=== PATIENT | female | born 1960 | race Caucasian/White ===

== ENCOUNTER 2018-06-29 15:00 | Emergency (ER) | payer MEDICARE, MEDICAID ==
[~2018-06-29] VITALS: Ht 152.4 cm; Wt 102.3 kg
[~2018-06-29 15:00] MED LIST: CEPH-571 PO
[2018-06-29] MEDS ORDERED: diphenhydrAMINE 50 mg/ml inj IV ONE (15:20)
[2018-06-29] MEDS ORDERED: dexamethasone sod phosphate 10mg/ml inj IV STA (15:20)
[2018-06-29] MEDS ORDERED: normal saline 1000ML IV soln IVB ONE (15:20)
[2018-06-29] MEDS ORDERED: ondansetron/PF 4mg/2ml inj IV ONE (15:20)
[2018-06-29] MEDS ORDERED: benztropine 1mg tablet PO ONE (15:25)
[2018-06-29] MEDS ORDERED: HYDROmorphone 1 mg/ml syringe IV ONE (15:55)
[2018-06-29] MEDS ORDERED: HYDROmorphone inj. 0.5 MG/0.5 ML DISP.SYRIN IV ONE (16:30)
[2018-06-29] MEDS ORDERED: diazepam 5mg tablet PO ONE (16:30)
[2018-06-29 16:45] VITALS: BP 141/88
== END 2018-06-29 16:47 | disposition home or self-care (01) ==
LOC: ER 15:00
DX: G24.8 Other dystonia (principal); M54.2 Cervicalgia; G89.29 Other chronic pain; F19.20 Other psychoactive substance dependence, uncomplicated; I10 Essential (primary) hypertension; J44.9 Chronic obstructive pulmonary disease, unspecified; Z90.710 Acquired absence of both cervix and uterus; Z90.89 Acquired absence of other organs; Z88.5 Allergy status to narcotic agent; Z88.1 Allergy status to other antibiotic agents
CPT/HCPCS: 96374; 96375; 96376; 99283; J1100; J1170; J1200; J2405; J7030

== ENCOUNTER 2018-07-05 13:27 | Emergency (ER) | payer MEDICARE, MEDICAID ==
[~2018-07-05] VITALS: Ht 152.4 cm; Wt 102.3 kg
[2018-07-05 13:35] VITALS: BP 136/81
[2018-07-05] MEDS ORDERED: morphine 4 MG/ML inj SYRINge IM ONE ×2 (13:55→14:40)
[2018-07-05] MEDS ORDERED: ondansetron 4mg rapidly disintigrating tab PO ONE (13:55)
[2018-07-05] MEDS ORDERED: fentaNYL 50MCG/HOUR patch.TD72 TD ONE (14:00)
[2018-07-05] MEDS ORDERED: diphenhydrAMINE 50 mg/ml inj IM ONE (14:40)
--- NOTE | 2018-07-05 15:09 | NUR ---
called caregiver, no answer, left message to call back as her client needs a ride home
== END 2018-07-05 15:19 | disposition home or self-care (01) ==
LOC: ER 13:28
DX: G89.29 Other chronic pain (principal); F11.23 Opioid dependence with withdrawal; I10 Essential (primary) hypertension; J44.9 Chronic obstructive pulmonary disease, unspecified; F41.9 Anxiety disorder, unspecified; F32.9 Major depressive disorder, single episode, unspecified; G20 Parkinson's disease; Z88.6 Allergy status to analgesic agent; Z88.1 Allergy status to other antibiotic agents; Z88.5 Allergy status to narcotic agent; Z79.899 Other long term (current) drug therapy; Z90.710 Acquired absence of both cervix and uterus; Z90.89 Acquired absence of other organs
CPT/HCPCS: 96372; 99284; J1200; J2270

== ENCOUNTER 2018-08-12 13:08 | Emergency (ER) | payer MEDICARE, MEDICAID ==
[~2018-08-12] VITALS: Ht 157.5 cm; Wt 100.0 kg
[2018-08-12] MEDS ORDERED: TOPI50TA24 PO ×2 (13:52→13:54)
[2018-08-12] MEDS ORDERED: FLUO20CA39 PO (13:52)
[2018-08-12] MEDS ORDERED: HYDROcodone/acetaminophen 5mg/325mg tablet PO ONE (13:55)
--- NOTE | 2018-08-12 14:46 | NUR ---
called Kelli [phone] spoke with GUICHO DE LA CRUZ, INFORMED NORCO PRESCRIPTION GIVEN 08/05 AND FENTANYL PATCH GIVEN TO PT ON 08/04/18, CALLED MARTIN ON [place] [phone] PT PICKED UP FENTANYL PATCH 50 MCG -10 PATCHES 08/06/18, AND NORCO 10/325 90 PILLS 07/23/18, NEXT NORCO REFILL DUE 08/20/18, PATIENT FILLED VALIUM FROM DR RYAN 07/16/18- 90 PILLS, PT AND PT EX-SPOUSE STATE PT DAUGHTER CONNIE STOPPED BEING PT CAREGIVER/[facility] 03/25/18 AND CORWIN STOPPED BEING CAREGIVER/[facility]HS APPROX 2 WEEKS AGO, PT STATES HER DAUGHTER TOOK HALF OF HER NORCO ON 08/03/18. [facility] [employer] SERVICE MADE AWARE OF THIS PT SITUATION AND WILL COME TO EVALUATE THE PATIENT.
--- NOTE | 2018-08-12 14:55 | NUR ---
LAKESHA MACHINE TECHNICIAN AT BEDSIDE NOW.
--- NOTE | 2018-08-12 15:23 | NUR ---
LAKESHA ULTRASOUND TECH INFORMING PT OF PLAN FOR FOLLOW UP WITH APS, PRESCRIPTIONS FROM PMD CURRENTLY AT [facility] AND PT BEING GIVEN PRESCRIPTION FOR TOMIRAMATE AND PROSAC, CALLED PT EX-SPOUSE [phone] SANDEEP AND HE WILL PICK HER UP IN APPROX 45 MIN AND BRING PT TO [facility] TO OCCUPATIONAL REHABILITATION AIDE PRESCRIPTIONS AND DROP OFF THE TWO PRESCRIPTIONS WRITTEN IN THE ED TODAY.
[2018-08-12 15:57] VITALS: BP 165/87
--- NOTE | 2018-08-12 16:09 | NUR ---
PT ORIGINALLY STATED THAT DR REBOLLEDO'S OFFICE CUT OFF HER PAIN MEDICATIONS 4 DAYS AGO, THEN SHE SAID HER DAUGHTER CONNIE STOLE HER NORCO APPROX 1/2 OF THEM IN THE BEGINNING OF JULY AND THEN SHE SAID SHE TOOK THEM ON 08/03 WHEN THEY WERE RECENTLY FILLED, LATER SHE SAID THAT MICHELLE HER [facility] WORKER/CAREGIVER TOO HER MEDICATION, PT STORY CHANGED MULTIPLE TIMES DURING ED VISIT, [employer] PERSON AWARE OF PT, APS HAS AN OPEN CASE FOR THIS PT, PT HAS IN HOME HELP FROM SANDEEP PT EX SPOUSE AT THIS TIME AND HE AND PT WILL BE WORKING TO FIND NEW [facility] PERSON IN THE NEXT WEEK, PT VERBALIZED UNDERSTANDING THAT SHE NEEDS TO FOLLOW UP WITH [facility] OFFICE FOR HER PRESCRIPTION REFILLS, PT INSTRUCTED TO TRY TO GET ALL OF HER MEDICATIONS FILLED AT ONE PHARMACY TO AVOID HAVING ANY INTERRUPTION OR ISSUES WITH HER PAIN MEDICATION CONTRACT.
== END 2018-08-12 16:12 | disposition home or self-care (01) ==
LOC: ER 13:09
DX: S00.11XA Contusion of right eyelid and periocular area, initial encounter (principal); G89.29 Other chronic pain; I10 Essential (primary) hypertension; J44.9 Chronic obstructive pulmonary disease, unspecified; F17.210 Nicotine dependence, cigarettes, uncomplicated; G20 Parkinson's disease; F41.9 Anxiety disorder, unspecified; F32.9 Major depressive disorder, single episode, unspecified; Z90.710 Acquired absence of both cervix and uterus; Z90.89 Acquired absence of other organs; Z88.5 Allergy status to narcotic agent; Z88.1 Allergy status to other antibiotic agents; Z88.6 Allergy status to analgesic agent; W18.39XA Other fall on same level, initial encounter; Y93.89 Activity, other specified; Y92.89 Other specified places as the place of occurrence of the external cause; Y99.9 Unspecified external cause status
CPT/HCPCS: 99284

== ENCOUNTER 2019-03-27 14:55 | Emergency (ER) | payer MEDICARE, MEDICAID ==
[~2019-03-27] VITALS: Ht 167.6 cm; Wt 100.0 kg
[~2019-03-27 14:55] MED LIST changes: +TOPI50TA24 PO
[2019-03-27] MEDS ORDERED: LORazepam 2 mg/ml vial IM ONE (16:30)
[2019-03-27 16:47] LABS: BASOPHILS # (AUTO) 0.1 X10'3 (0-0.2); EOSINOPHILS # (AUTO) 0.1 X10'3 (0-0.9); EOSINOPHILS % (AUTO) 1.8 % (0-6); HEMOGLOBIN 12.9 g/dl (12.0-16.0); LYMPHOCYTES # (AUTO) 2.5 X10'3 (1.1-4.8); LYMPHOCYTES % (AUTO) 34.4 % (21-51); MEAN CORPUSCULAR HEMOGLOBIN 29.2 PG (27.0-31.0); MEAN CORPUSCULAR HGB CONC 33.1 g/dL (33.0-36.5); MEAN CORPUSCULAR VOLUME 88.3 FL (78-98); MEAN PLATELET VOLUME 7.5 FL (7.4-10.4); MONOCYTES # (AUTO) 0.5 X10'3 (0-0.9); MONOCYTES % (AUTO) 7.1 % (2-12); NEUTROPHILS % (AUTO) 55.7 % (42-75); PLATELET COUNT 207 X10'3 (140-440); RED BLOOD COUNT 4.42 X10'6 (4.20-5.60); RED CELL DISTRIBUTION WIDTH 13.9 % (11.5-14.5); WHITE BLOOD COUNT 7.3 X10'3 (4.5-11.0)
[2019-03-27 17:00] LABS: ALANINE AMINOTRANSFERASE 18 U/L (12-78); ALBUMIN 3.5 G/DL (3.4-5.0); ALBUMIN/GLOBULIN RATIO 0.8 (1.1-1.5); ALKALINE PHOSPHATASE 86 IU/L (46-116); ANION GAP 7 (8-16); ASPARTATE AMINO TRANSFERASE 19 U/L (10-37); BILIRUBIN,TOTAL 0.3 MG/DL (0.1-1.0); BLOOD UREA NITROGEN 21 MG/DL (7-18); CALCIUM 9.1 MG/DL (8.5-10.1); CHLORIDE 103 MMOL/L (99-107); GLUCOSE 83 MG/DL (70-104); POTASSIUM 3.8 MMOL/L (3.5-5.1); SODIUM 139 MMOL/L (135-145); TOTAL CARBON DIOXIDE 29.5 MMOL/L (24-32); TOTAL PROTEIN 7.7 G/DL (6.4-8.2); eGFR 57 ML/MIN
[2019-03-27 17:12] LABS: ETHANOL < 0.010 GM/DL (0.0-0.010); MAGNESIUM 1.9 MG/DL (1.5-2.4)
[2019-03-27 17:12] LABS: URINE AMPHETAMINE SCREEN POSITIVE (Neg); URINE BARBITUATE SCREEN NEGATIVE (Neg); URINE BENZODIAZEPINES SCREEN POSITIVE (Neg); URINE CANNABINOID SCREEN NEGATIVE (Neg); URINE COCAINE SCREEN NEGATIVE (Neg); URINE METHADONE SCREEN NEGATIVE (Neg); URINE OPIATE SCREEN POSITIVE (Neg); URINE PHENCYCLIDINE SCREEN NEGATIVE (Neg)
--- NOTE | 2019-03-27 17:19 | NUR ---
TELEPHONE CALL FROM SANDEEP SCHNEIDER ([facility]). CONTACT PHONE NUMBER FOR SANDEEP SCHNEIDER IS .
--- NOTE | 2019-03-27 17:20 | NUR ---
Provider Cosme at the bedside at this time.
[2019-03-27] MEDS ORDERED: diphenhydrAMINE 50 mg/ml inj IM ONE (17:35)
--- NOTE | 2019-03-27 17:58 | NUR ---
Order for benadryl dose in the ED cancelled because pt received 50mg IM per EMS in route to the ED. Further orders or disposition are pending at this time.
[2019-03-27] MEDS ORDERED: benztropine 1mg tablet PO ONE (18:50)
[2019-03-27] MEDS ORDERED: KETAMINE IV ONE (19:00)
[2019-03-27] MEDS ORDERED: NORMAL SALINE IV ONE (19:00)
[2019-03-27] MEDS ORDERED: BENZ1TAB7 PO (19:10)
[2019-03-27] MEDS ORDERED: HYDROcodone/acetaminophen 10/325mg tab PO ONE (20:30)
[2019-03-27] MEDS ORDERED: AMOX500C2 PO (20:33)
[2019-03-27 20:44] VITALS: BP 112/68
== END 2019-03-27 20:45 | disposition home or self-care (01) ==
LOC: ER 14:55
DX: S63.114A Dislocation of metacarpophalangeal joint of right thumb, initial encounter (principal); G24.8 Other dystonia; R07.89 Other chest pain; I10 Essential (primary) hypertension; J44.9 Chronic obstructive pulmonary disease, unspecified; G89.29 Other chronic pain; Z90.710 Acquired absence of both cervix and uterus; Z90.89 Acquired absence of other organs; Z88.0 Allergy status to penicillin; Z88.5 Allergy status to narcotic agent; Z88.1 Allergy status to other antibiotic agents; Z88.6 Allergy status to analgesic agent; Z79.899 Other long term (current) drug therapy; X58.XXXA Exposure to other specified factors, initial encounter; Y93.89 Activity, other specified; Y92.89 Other specified places as the place of occurrence of the external cause; Y99.9 Unspecified external cause status
CPT/HCPCS: 26700; 36415; 73120; 73140; 80053; 80305; 80320; 82553; 83735; 85025; 96365; 96372; 99284; J2060

== ENCOUNTER 2019-09-13 09:31 | Outpatient (CLI) | payer MEDICARE, MEDICAID ==
[~2019-09-13 09:31] MED LIST changes: +BARIUM SULFATE 700 MG TABLET PO ONE
== END 2019-09-13 23:59 | disposition home or self-care (01) ==
LOC: RAD 09:31
PROVIDERS: ATTEND Family Medicine
DX: K21.9 Gastro-esophageal reflux disease without esophagitis (principal); K44.9 Diaphragmatic hernia without obstruction or gangrene
CPT/HCPCS: 74220

== ENCOUNTER 2019-10-04 06:38 | Day surgery (SDC) | payer MEDICARE, MEDICAID ==
[~2019-10-04] VITALS: Ht 167.6 cm; Wt 86.4 kg
[~2019-10-04 06:38] MED LIST changes: -BARIUM SULFATE 700 MG TABLET PO ONE
[2019-10-04 06:47] VITALS: BP 160/94
[2019-10-04] MEDS ORDERED: TOPI50TA24 PO (06:55)
[2019-10-04] MEDS ORDERED: AMOX-441 PO (06:56)
[2019-10-04] MEDS ORDERED: MORP30TA60 PO (06:57)
[2019-10-04] MEDS ORDERED: OXYC10TA47 PO (06:58)
[2019-10-04] MEDS ORDERED: FLUO40CA10 PO (06:59)
[2019-10-04] MEDS ORDERED: MIRT30TA3 PO (06:59)
[2019-10-04] MEDS ORDERED: FURO-150 PO (07:00)
[2019-10-04] MEDS ORDERED: BUDE0.5A11 NEB (07:00)
[2019-10-04] MEDS ORDERED: ALBU1.256 NEB (07:01)
[2019-10-04] MEDS ORDERED: IPRA4AER IH (07:02)
[2019-10-04] MEDS ORDERED: MELO-102 PO (07:02)
[2019-10-04] MEDS ORDERED: OMEP40CA13 PO (07:03)
[2019-10-04] MEDS ORDERED: BACL20TA PO (07:03)
[2019-10-04] MEDS ORDERED: MIDAZolam 5mg/5ml vial ONE (07:09)
[2019-10-04] MEDS ORDERED: fentaNYL/PF 50MCG/1 ML 2ML syringe ONE (07:09)
[2019-10-04] MEDS ORDERED: LIDOcaine Viscous 15ml cup ONE (07:09)
[2019-10-04 08:35] VITALS: BP 118/83
[2019-10-04 08:45] VITALS: BP 118/72
[2019-10-04 08:55] VITALS: BP 122/75
== END 2019-10-04 09:16 | disposition home or self-care (01) ==
LOC: GI LAB 06:38
PROVIDERS: ATTEND Internal Medicine Gastroenterology
DX: R13.13 Dysphagia, pharyngeal phase (principal); K22.2 Esophageal obstruction; K21.0 Gastro-esophageal reflux disease with esophagitis
CPT/HCPCS: 43248; G0500; J2250; J3010; J7040; 99152; A4620

== ENCOUNTER 2019-12-15 02:40 | Inpatient (IN) | payer MEDICARE, MEDICAID ==
[~2019-12-15] VITALS: Ht 167.6 cm; Wt 75.0 kg
[~2019-12-15 02:40] MED LIST changes: +ALBU1.256 NEB; +AMOX-441 PO; +BACL20TA PO; +BUDE0.5A11 NEB; -CEPH-571 PO; +FLUO40CA10 PO; +FURO-150 PO; +IPRA4AER IH; +MELO-102 PO; +MIRT30TA3 PO; +MORP30TA60 PO; +OMEP40CA13 PO; +OXYC10TA47 PO
--- NOTE | 2019-12-15 03:28 | NUR ---
DAUGHTER CONNIE COOPER ([phone]). STATES PT NOT SENT TO HOSPITAL FOR BACK AND NECK PAIN (SHE DOES HAVE THIS CHRONICLY D/T HER DYSTONIA). PT HAS SCHITZOAFFECTIVE DISORDER AND IS WELL MANAGED WITH MEDS. ALSO WITH [facility] DIMENTIA. PT AT BASELINE IS A&OX2-3 AND CAN CONVERSE APPROPRIATELY USUALLY AND MAKE NEEDS KNOWN AND AMBLUATES WITH WALKER). SHE WAS DC'D ON FROM [facility] FOR ACUTE PAIN (D/T A FALL IN THE SHOWER, SPENT 3 DAYS THERE) AND WAS SUPPOSED TO GO TO REHAB BUT D/T [facility] VIRUS, WENT HOME [facility]. PER PTS [facility] WORKER, PT AWOKE ON IN THE AM AND WAS ACTING BIZZARE AND SCREAMING OUT, STARING OFF, COULDNT TALK. A HOME HEALTH RN THEN CAME TO [facility] AND SAID "SHE IS HAVING A MAJOR NEUROLOGIC EVENT". [facility] WAS CALLED AND THEY WERE TO HAVE AN APPT WITH DR. BRASHER COORDINATED. THEY DID NOT HAPPEN. PT STARTED TO IMPROVE, BUT GOT WORSE AGAIN. DAUGHTER STATES "BRYAN COLE SEEN HER LIKE THIS BEFORE". SHE THINKS PT HAVNIG A STROKE. PT WAS HOSPITALIZED 8 DAYS AT [facility] A FEW WEEKS AGO WITH PNEUMONIA. PT CANOT LIFT HER HEAD UP AND CANNOT LAY FLAT D'T HER SPINE CURVATURE.
[2019-12-15] MEDS ORDERED: normal saline 1000ML IV soln IVB ONE (04:20)
[2019-12-15 04:52] LABS: BASOPHILS % (AUTO) 0.3 % (0-1); EOSINOPHILS # (AUTO) 0.1 X10'3 (0-0.9); EOSINOPHILS % (AUTO) 0.5 % (0-6); HEMATOCRIT 34.3 % (35.0-45.0); HEMOGLOBIN 11.6 g/dl (12.0-16.0); LYMPHOCYTES # (AUTO) 0.9 X10'3 (1.1-4.8); LYMPHOCYTES % (AUTO) 8.5 % (21-51); MEAN CORPUSCULAR HEMOGLOBIN 29.9 PG (27.0-31.0); MEAN CORPUSCULAR HGB CONC 33.8 g/dL (33.0-36.5); MEAN CORPUSCULAR VOLUME 88.5 FL (78-98); MEAN PLATELET VOLUME 7.1 FL (7.4-10.4); MONOCYTES # (AUTO) 0.7 X10'3 (0-0.9); MONOCYTES % (AUTO) 6.4 % (2-12); NEUTROPHILS # (AUTO) 8.9 X10'3 (1.8-7.7); NEUTROPHILS % (AUTO) 84.3 % (42-75); PLATELET COUNT 347 X10'3 (140-440); RED BLOOD COUNT 3.88 X10'6 (4.20-5.60); RED CELL DISTRIBUTION WIDTH 13.8 % (11.5-14.5); WHITE BLOOD COUNT 10.5 X10'3 (4.5-11.0)
--- NOTE | 2019-12-15 04:55 | NUR ---
PT TO CT. DR FOWLER AT BEDSIDE AGAIN. PT CONTNUES WITH STABLE VS. PT MOVING ALL EXTREMITIES BUT DOES NOT FOLLOW COMMANDS, ALSO MOANING INTERMITTENTLY AND SAYING OW.
[2019-12-15 05:09] LABS: ALANINE AMINOTRANSFERASE 45 U/L (12-78); ALBUMIN 3.2 G/DL (3.4-5.0); ALBUMIN/GLOBULIN RATIO 0.8 (1.1-1.5); ALKALINE PHOSPHATASE 60 IU/L (46-116); ANION GAP 7 (8-16); ASPARTATE AMINO TRANSFERASE 41 U/L (10-37); BILIRUBIN,TOTAL 0.5 MG/DL (0.1-1.0); BLOOD UREA NITROGEN 38 MG/DL (7-18); BUN/CREATININE RATIO 22.6 (6.6-38.0); CHLORIDE 99 MMOL/L (99-107); CREATININE 1.68 MG/DL (0.40-0.90); GLUCOSE 134 MG/DL (70-104); POTASSIUM 3.3 MMOL/L (3.5-5.1); SODIUM 133 MMOL/L (135-145); TOTAL CARBON DIOXIDE 26.6 MMOL/L (24-32); TOTAL PROTEIN 7.2 G/DL (6.4-8.2); eGFR 31 ML/MIN
[2019-12-15 05:13] LABS: CLARITY,URINE CLEAR (Clear); COLOR,URINE YELLOW (Yellow); GLUCOSE, URINE NEGATIVE (Neg); KETONES,URINE TRACE mg/dl (Neg); LEUKOCYTE ESTERASE ,URINE NEGATIVE (Neg); NITRITES, URINE NEGATIVE (Neg); OCCULT BLOOD,URINE LARGE (Neg); PH,URINE 5.5 (4.8-8.0); PROTEIN,URINE NEGATIVE (Neg); UROBILINOGEN,URINE 0.2 E.U/dL (0.2-1.0)
[2019-12-15 05:18] LABS: ETHANOL < 0.010 GM/DL (0.0-0.010); TROPONIN I 0.04 NG/ML (0.0-0.05)
[2019-12-15 05:19] LABS: URINE AMPHETAMINE SCREEN NEGATIVE (Neg); URINE BARBITUATE SCREEN POSITIVE (Neg); URINE BENZODIAZEPINES SCREEN NEGATIVE (Neg); URINE CANNABINOID SCREEN NEGATIVE (Neg); URINE COCAINE SCREEN NEGATIVE (Neg); URINE METHADONE SCREEN NEGATIVE (Neg); URINE OPIATE SCREEN POSITIVE (Neg); URINE PHENCYCLIDINE SCREEN NEGATIVE (Neg)
--- NOTE | 2019-12-15 05:46 | NUR ---
DR. COUGHLIN AT [facility] FOR ADMISSION. PT RASED HER AMS AND RAISED HER FEET WHEN ASKED. NOT ANSWERING QUESTIONS BUT REPEATED SOME OF THE QUESTIONS BACK TO US.
[2019-12-15] MEDS ORDERED: potassium Cl 20 mEq SR tablet PO PRN (06:00)
[2019-12-15] MEDS ORDERED: potassium CL 10mEq/100ml bag 100 ML IV PRN (06:00)
[2019-12-15] MEDS ORDERED: magnesium 2GM in 50ml NS 50 ML IV PRN (06:00)
[2019-12-15] MEDS ORDERED: magnesium 4gm in 100ml NS 100 ML IV PRN (06:00)
[2019-12-15] MEDS ORDERED: acetaminophen 325mg tablet PO PRN ×2 (06:00)
[2019-12-15] MEDS ORDERED: ondansetron/PF 4mg/2ml inj IV PRN (06:00)
[2019-12-15] MEDS ORDERED: mag hydrox/Alum hydrox/simeth 30ml oral suspension PO PRN (06:00)
[2019-12-15] MEDS ORDERED: BISA5TAB RC (06:10)
[2019-12-15] MEDS ORDERED: AMLO2.5T2 PO (06:10)
[2019-12-15] MEDS ORDERED: CHOL10006 PO (06:10)
[2019-12-15] MEDS ORDERED: GABA-530 PO (06:10)
--- NOTE | 2019-12-15 06:32 | NUR ---
pt admitted. tele neuro consult completed. MD recommending MRI, admission, Neurology to follow.
[2019-12-15 06:36] LABS: UA COLLECTION TYPE NON-SPECIFIED
[2019-12-15 06:51] LABS: SQUAMOUS EPITHELIAL CELL,UR MODERATE /LPF (FEW)
[2019-12-15 06:52] LABS: YEAST MANY /HPF (NEGATIVE)
[2019-12-15 06:53] LABS: BACTERIA,URINE 2+ /HPF (Neg)
[2019-12-15] MEDS: docusate sod 100mg capsule PO SCH ×2 (07:42→19:40)
[2019-12-15] MEDS: ziprasidone 20mg capsule PO SCH ×2 (07:43→19:40)
[2019-12-15] MEDS: heparin, porcine 5000 units/ml vial SQ SCH ×3 (07:43→23:26)
[2019-12-15] MEDS: K and/or MAG REPLACEMENT MC SCH ×2 (08:00→20:00)
[2019-12-15] MEDS ORDERED: LORazepam 2 mg/ml vial IM ONE (08:15)
[2019-12-15] MEDS: normal saline 1000ml 1,000 ML IV SCH ×2 (08:20→23:24)
--- NOTE | 2019-12-15 09:42 | NUR ---
NEW ORDER FOR ELSY BED 7, WAITING FOR BED, PROBALY GOING TO BE A LONG WAIT.
--- NOTE | 2019-12-15 09:49 | NUR ---
EEG COMING WITHIN 2 HOURS
[2019-12-15] MEDS ORDERED: FLUT16SP2 BOTHNARES (09:54)
[2019-12-15] MEDS ORDERED: FURO40TA4 PO (09:54)
[2019-12-15] MEDS ORDERED: TOPI25TA15 PO (09:54)
[2019-12-15] MEDS ORDERED: POTA8CAP20 PO (09:54)
[2019-12-15] MEDS ORDERED: MIRT15TA PO (09:54)
[2019-12-15] MEDS ORDERED: OLOP5DRO14 EACHEYE (09:54)
[2019-12-15] MEDS ORDERED: SENN-263 PO (09:54)
[2019-12-15] MEDS ORDERED: HYDR-3686 PO (09:54)
[2019-12-15] MEDS ORDERED: SUCR1TAB PO (09:54)
[2019-12-15] MEDS ORDERED: LORA10TA7 PO (09:54)
[2019-12-15] MEDS ORDERED: PALI1.5T PO (09:54)
[2019-12-15] MEDS ORDERED: BUS15T PO (09:54)
[2019-12-15] MEDS ORDERED: MORP30TA60 PO (09:54)
[2019-12-15] MEDS ORDERED: DOCU100C42 PO (09:54)
[2019-12-15] MEDS ORDERED: OMEP-50 PO (09:54)
[2019-12-15] MEDS: CefTRIAXone/D5W-Rocephin 1gm 50 ML IV SCH (10:41)
[2019-12-15] MEDS: potassium CL 10mEq/100ml bag 100 ML IV PRN ×2 (11:57→16:07)
[2019-12-15] MEDS ORDERED: ipratropium/albuterol 3ml nebule NEB PRN (12:40)
[2019-12-15] MEDS ORDERED: sennosides 8.6mg tablet PO PRN (12:40)
[2019-12-15] MEDS ORDERED: bisacodyl 10mg suppository rectal RC PRN (12:40)
[2019-12-15] MEDS ORDERED: fluticasone nasal spray 16GM bottle NS PRN (12:40)
[2019-12-15] MEDS ORDERED: docusate sod 100mg capsule PO PRN (12:40)
[2019-12-15] MEDS: busPIRone 15mg tablet PO SCH ×2 (13:03→21:41)
[2019-12-15 14:00] VITALS: BP 199/108
[2019-12-15 14:45] VITALS: BP 180/108
--- NOTE | 2019-12-15 16:52 | NUR ---
Paged Dr. Padilla regarding ativan for mri and high BP 180/100 .
[2019-12-15] MEDS ORDERED: amLODIPine 5mg tablet PO ONE (17:10)
[2019-12-15] MEDS ORDERED: LORazepam 2 mg/ml vial IV STA ×2 (17:10→17:30)
[2019-12-15 18:00] VITALS: BP 157/61
--- NOTE | 2019-12-15 18:30 | NUR ---
patient report given to Fiordaliza DE LA CRUZ
[2019-12-15] MEDS: sucralfate 1 gm tablet PO SCH ×2 (19:30→21:42)
[2019-12-15] MEDS: gabapentin 100mg capsule PO SCH (19:40)
[2019-12-15] MEDS: morphine ER 30mg tablet PO SCH (19:40)
[2019-12-15] MEDS: lactobacillus rhamnosus 10,000 MMU CELLS/CAPSULE PO SCH (19:40)
[2019-12-15] MEDS: topiramate 25mg tablet PO SCH (21:42)
[2019-12-15] MEDS: mirtazapine 15mg tablet PO SCH (21:42)
[2019-12-15 22:00] VITALS: BP 130/67
[2019-12-16 02:00] VITALS: BP 145/74
[2019-12-16 06:10] VITALS: BP 139/71
--- NOTE | 2019-12-16 06:30 | NUR ---
Patient in room ORTHO 4020. I have received report from Fiordaliza DE LA CRUZ and had the opportunity to ask questions and assume patient care.
[2019-12-16] MEDS: pantoprazole 40mg Tablet.DR PO SCH (07:52)
[2019-12-16] MEDS: morphine ER 30mg tablet PO SCH ×2 (07:52→17:06)
[2019-12-16] MEDS: FLUoxetine 20mg capsule PO SCH (07:53)
[2019-12-16] MEDS: loratadine 10mg tablet PO SCH (07:54)
[2019-12-16] MEDS: gabapentin 100mg capsule PO SCH ×2 (07:54→20:17)
[2019-12-16] MEDS: lactobacillus rhamnosus 10,000 MMU CELLS/CAPSULE PO SCH ×2 (07:54→20:18)
[2019-12-16] MEDS: busPIRone 15mg tablet PO SCH ×3 (07:56→20:18)
[2019-12-16] MEDS: ziprasidone 20mg capsule PO SCH ×2 (07:56→20:15)
[2019-12-16] MEDS: aspirin 81mg tab.chew PO SCH (07:56)
[2019-12-16] MEDS: amLODIPine 5mg tablet PO SCH (07:58)
[2019-12-16] MEDS: docusate sod 100mg capsule PO SCH ×2 (07:58→20:18)
[2019-12-16] MEDS: sucralfate 1 gm tablet PO SCH ×4 (07:59→20:16)
[2019-12-16 08:00] LABS: BASOPHILS % (AUTO) 0.2 % (0-1); EOSINOPHILS % (AUTO) 0 % (0-6); HEMATOCRIT 36.9 % (35.0-45.0); HEMOGLOBIN 12.3 g/dl (12.0-16.0); LYMPHOCYTES # (AUTO) 0.7 X10'3 (1.1-4.8); LYMPHOCYTES % (AUTO) 7.6 % (21-51); MEAN CORPUSCULAR HEMOGLOBIN 30.2 PG (27.0-31.0); MEAN CORPUSCULAR HGB CONC 33.3 g/dL (33.0-36.5); MEAN CORPUSCULAR VOLUME 90.9 FL (78-98); MEAN PLATELET VOLUME 7.3 FL (7.4-10.4); MONOCYTES # (AUTO) 0.5 X10'3 (0-0.9); MONOCYTES % (AUTO) 5.8 % (2-12); NEUTROPHILS # (AUTO) 7.8 X10'3 (1.8-7.7); NEUTROPHILS % (AUTO) 86.4 % (42-75); PLATELET COUNT 350 X10'3 (140-440); RED BLOOD COUNT 4.06 X10'6 (4.20-5.60); RED CELL DISTRIBUTION WIDTH 13.7 % (11.5-14.5)
[2019-12-16] MEDS: heparin, porcine 5000 units/ml vial SQ SCH ×3 (08:00→23:28)
[2019-12-16] MEDS: CefTRIAXone/D5W-Rocephin 1gm 50 ML IV SCH (08:00)
[2019-12-16] MEDS: tetrahydrozoline 0.05% 15ml ophthalmic drops EACHEYE SCH (08:00)
[2019-12-16] MEDS: K and/or MAG REPLACEMENT MC SCH ×2 (08:00→20:20)
[2019-12-16] MEDS: normal saline 1000ml 1,000 ML IV SCH ×2 (08:07→17:06)
[2019-12-16] MEDS: vitamin D (cholecalciferol) 1,000 unit tablet PO SCH (08:08)
[2019-12-16 08:09] LABS: ALANINE AMINOTRANSFERASE 58 U/L (12-78); ALBUMIN 3.2 G/DL (3.4-5.0); ALBUMIN/GLOBULIN RATIO 0.7 (1.1-1.5); ALKALINE PHOSPHATASE 70 IU/L (46-116); ANION GAP 9 (8-16); ASPARTATE AMINO TRANSFERASE 62 U/L (10-37); BILIRUBIN,TOTAL 0.6 MG/DL (0.1-1.0); BLOOD UREA NITROGEN 22 MG/DL (7-18); BUN/CREATININE RATIO 20.8 (6.6-38.0); CALCIUM 8.9 MG/DL (8.5-10.1); CHLORIDE 103 MMOL/L (99-107); CHOL/HDL RATIO 2.5 (0.00-4.99); CHOLESTEROL 187 MG/DL (0-200); CREATININE 1.06 MG/DL (0.40-0.90); GLUCOSE 122 MG/DL (70-104); HDL CHOLESTEROL 76 MG/DL (35-60); LDL CHOLESTEROL 85 MG/DL (50-100); MAGNESIUM 2.3 MG/DL (1.5-2.4); POTASSIUM 3.6 MMOL/L (3.5-5.1); SODIUM 136 MMOL/L (135-145); TOTAL PROTEIN 7.6 G/DL (6.4-8.2); TRIGLYCERIDES 98 MG/DL (20-135); eGFR 53 ML/MIN
--- NOTE | 2019-12-16 09:43 | NUR ---
Pt with a low Ari of 11. Per physical assessment pt with BLE 2+ edema and skin is intact. Pt initially NPO now on mechanical soft grind all food diet with thin liquids per ST s/p BSS documented with 25% PO intake first meal. Pt documented as A/O x 1 and confused with hx dementia, Parkinson's, and psych. Will follow closely and monitor need for nutrition intervention. Addendum: 12/16/19 at [address] Amended: Links added.
[2019-12-16 10:00] VITALS: BP 153/79
[2019-12-16] MEDS: paliperidone 1.5mg ER tablet PO SCH (12:30)
[2019-12-16] MEDS ORDERED: OXYC-150 PO (12:44)
[2019-12-16] MEDS ORDERED: ondansetron 4mg rapidly disintigrating tab PO PRN (16:25)
[2019-12-16 18:00] VITALS: BP 159/84
--- NOTE | 2019-12-16 18:10 | NUR ---
Problems reprioritized. Patient report given, questions answered & plan of care reviewed with Fiordaliza Mckenzie RN.
[2019-12-16] MEDS: mirtazapine 15mg tablet PO SCH (20:16)
[2019-12-16] MEDS: topiramate 25mg tablet PO SCH (20:17)
[2019-12-16 22:00] VITALS: BP 147/81
[2019-12-17] MEDS: oxyCODONE/APAP 5-325mg tablet PO PRN ×2 (02:45→14:03)
[2019-12-17] MEDS: normal saline 1000ml 1,000 ML IV SCH ×3 (02:47→17:58)
[2019-12-17 06:10] VITALS: BP 147/86
--- NOTE | 2019-12-17 06:16 | NUR ---
Report given to Tonia DE LA CRUZ.
--- NOTE | 2019-12-17 06:28 | NUR ---
Patient in room ORTHO 4020. I have received report from Fiordaliza DE LA CRUZ and had the opportunity to ask questions and assume patient care.
[2019-12-17 06:51] LABS: BASOPHILS % (AUTO) 0.5 % (0-1); EOSINOPHILS % (AUTO) 0.3 % (0-6); HEMATOCRIT 32.5 % (35.0-45.0); HEMOGLOBIN 11.2 g/dl (12.0-16.0); LYMPHOCYTES # (AUTO) 0.7 X10'3 (1.1-4.8); LYMPHOCYTES % (AUTO) 11.9 % (21-51); MEAN CORPUSCULAR HEMOGLOBIN 30.5 PG (27.0-31.0); MEAN CORPUSCULAR HGB CONC 34.5 g/dL (33.0-36.5); MEAN CORPUSCULAR VOLUME 88.5 FL (78-98); MEAN PLATELET VOLUME 6.9 FL (7.4-10.4); MONOCYTES # (AUTO) 0.4 X10'3 (0-0.9); MONOCYTES % (AUTO) 7.3 % (2-12); NEUTROPHILS # (AUTO) 4.7 X10'3 (1.8-7.7); PLATELET COUNT 290 X10'3 (140-440); RED BLOOD COUNT 3.67 X10'6 (4.20-5.60); RED CELL DISTRIBUTION WIDTH 13.2 % (11.5-14.5); WHITE BLOOD COUNT 5.9 X10'3 (4.5-11.0)
[2019-12-17 07:15] LABS: ALANINE AMINOTRANSFERASE 59 U/L (12-78); ALBUMIN 2.7 G/DL (3.4-5.0); ALBUMIN/GLOBULIN RATIO 0.7 (1.1-1.5); ALKALINE PHOSPHATASE 58 IU/L (46-116); ANION GAP 12 (8-16); ASPARTATE AMINO TRANSFERASE 52 U/L (10-37); BILIRUBIN,TOTAL 0.5 MG/DL (0.1-1.0); BLOOD UREA NITROGEN 17 MG/DL (7-18); BUN/CREATININE RATIO 18.5 (6.6-38.0); CALCIUM 8.6 MG/DL (8.5-10.1); CHLORIDE 104 MMOL/L (99-107); CREATININE 0.92 MG/DL (0.40-0.90); GLUCOSE 123 MG/DL (70-104); MAGNESIUM 2.1 MG/DL (1.5-2.4); POTASSIUM 3.4 MMOL/L (3.5-5.1); SODIUM 138 MMOL/L (135-145); TOTAL CARBON DIOXIDE 21.7 MMOL/L (24-32); TOTAL PROTEIN 6.5 G/DL (6.4-8.2); eGFR 62 ML/MIN
[2019-12-17] MEDS: K and/or MAG REPLACEMENT MC SCH ×2 (08:00→20:00)
[2019-12-17] MEDS: busPIRone 15mg tablet PO SCH ×3 (08:26→20:25)
[2019-12-17] MEDS: ziprasidone 20mg capsule PO SCH ×2 (08:26→20:22)
[2019-12-17] MEDS: aspirin 81mg tab.chew PO SCH (08:26)
[2019-12-17] MEDS: loratadine 10mg tablet PO SCH (08:26)
[2019-12-17] MEDS: gabapentin 100mg capsule PO SCH ×2 (08:26→20:24)
[2019-12-17] MEDS: pantoprazole 40mg Tablet.DR PO SCH (08:26)
[2019-12-17] MEDS: lactobacillus rhamnosus 10,000 MMU CELLS/CAPSULE PO SCH ×2 (08:26→20:22)
[2019-12-17] MEDS: paliperidone 1.5mg ER tablet PO SCH (08:27)
[2019-12-17] MEDS: morphine ER 30mg tablet PO SCH ×2 (08:27→16:43)
[2019-12-17] MEDS: FLUoxetine 20mg capsule PO SCH (08:27)
[2019-12-17] MEDS: amLODIPine 5mg tablet PO SCH (08:27)
[2019-12-17] MEDS: vitamin D (cholecalciferol) 1,000 unit tablet PO SCH (08:27)
[2019-12-17] MEDS: docusate sod 100mg capsule PO SCH ×2 (08:28→20:00)
[2019-12-17] MEDS: CefTRIAXone/D5W-Rocephin 1gm 50 ML IV SCH (08:28)
[2019-12-17] MEDS: tetrahydrozoline 0.05% 15ml ophthalmic drops EACHEYE SCH (08:28)
[2019-12-17] MEDS: sucralfate 1 gm tablet PO SCH ×4 (08:28→20:25)
[2019-12-17] MEDS: heparin, porcine 5000 units/ml vial SQ SCH ×3 (08:28→23:55)
[2019-12-17] MEDS: potassium Cl 20 mEq SR tablet PO PRN ×3 (08:42→20:22)
[2019-12-17 10:00] VITALS: BP 166/86
[2019-12-17] MEDS: baclofen 10mg tablet PO PRN ×2 (17:27→23:55)
[2019-12-17 18:00] VITALS: BP 163/97
--- NOTE | 2019-12-17 18:19 | NUR ---
Problems reprioritized. Patient report given, questions answered & plan of care reviewed with Tenzin DE LA CRUZ.
--- NOTE | 2019-12-17 18:30 | NUR ---
Patient in room ORTHO 4020. I have received report from Crystal DE LA CRUZ and had the opportunity to ask questions and assume patient care. Addendum: 12/17/19 at 1909 by Karly Tinsley RN Report from Tonia DE LA CRUZ not Crystal
[2019-12-17] MEDS: mirtazapine 15mg tablet PO SCH (20:25)
[2019-12-17] MEDS: topiramate 25mg tablet PO SCH (20:26)
[2019-12-17 22:00] VITALS: BP 169/94
[2019-12-18 02:00] VITALS: BP 166/106
[2019-12-18] MEDS: oxyCODONE/APAP 5-325mg tablet PO PRN ×2 (02:07→16:38)
[2019-12-18] MEDS: normal saline 1000ml 1,000 ML IV SCH ×3 (03:58→23:58)
[2019-12-18 06:00] VITALS: BP 164/88
--- NOTE | 2019-12-18 06:30 | NUR ---
Problems reprioritized. Patient report given, questions answered & plan of care reviewed with Petty DE LA CRUZ.
--- NOTE | 2019-12-18 06:39 | NUR ---
Patient in room ORTHO 4020. I have received report from MANDY DE L ACRUZ and had the opportunity to ask questions and assume patient care.
[2019-12-18 07:12] LABS: BASOPHILS % (AUTO) 0.6 % (0-1); EOSINOPHILS % (AUTO) 0.4 % (0-6); HEMATOCRIT 33.7 % (35.0-45.0); HEMOGLOBIN 11.5 g/dl (12.0-16.0); LYMPHOCYTES # (AUTO) 0.6 X10'3 (1.1-4.8); LYMPHOCYTES % (AUTO) 9.5 % (21-51); MEAN CORPUSCULAR HEMOGLOBIN 30.1 PG (27.0-31.0); MEAN CORPUSCULAR HGB CONC 34.2 g/dL (33.0-36.5); MEAN PLATELET VOLUME 7.5 FL (7.4-10.4); MONOCYTES # (AUTO) 0.5 X10'3 (0-0.9); MONOCYTES % (AUTO) 6.9 % (2-12); NEUTROPHILS # (AUTO) 5.6 X10'3 (1.8-7.7); NEUTROPHILS % (AUTO) 82.6 % (42-75); PLATELET COUNT 311 X10'3 (140-440); RED BLOOD COUNT 3.83 X10'6 (4.20-5.60); RED CELL DISTRIBUTION WIDTH 13.2 % (11.5-14.5); WHITE BLOOD COUNT 6.7 X10'3 (4.5-11.0)
[2019-12-18] MEDS: sucralfate 1 gm tablet PO SCH ×4 (07:25→20:33)
[2019-12-18] MEDS: FLUoxetine 20mg capsule PO SCH (07:25)
[2019-12-18] MEDS: gabapentin 100mg capsule PO SCH ×2 (07:25→20:33)
[2019-12-18] MEDS: pantoprazole 40mg Tablet.DR PO SCH (07:25)
[2019-12-18] MEDS: docusate sod 100mg capsule PO SCH ×2 (07:25→20:32)
[2019-12-18] MEDS: heparin, porcine 5000 units/ml vial SQ SCH ×2 (07:26→16:55)
[2019-12-18] MEDS: paliperidone 1.5mg ER tablet PO SCH (07:26)
[2019-12-18] MEDS: busPIRone 15mg tablet PO SCH ×3 (07:26→20:33)
[2019-12-18] MEDS: morphine ER 30mg tablet PO SCH ×2 (07:26→20:31)
[2019-12-18] MEDS: lactobacillus rhamnosus 10,000 MMU CELLS/CAPSULE PO SCH ×2 (07:26→20:32)
[2019-12-18] MEDS: amLODIPine 5mg tablet PO SCH (07:26)
[2019-12-18] MEDS: vitamin D (cholecalciferol) 1,000 unit tablet PO SCH (07:26)
[2019-12-18] MEDS: ziprasidone 20mg capsule PO SCH ×2 (07:26→20:32)
[2019-12-18] MEDS: CefTRIAXone/D5W-Rocephin 1gm 50 ML IV SCH (07:27)
[2019-12-18] MEDS: aspirin 81mg tab.chew PO SCH (07:29)
[2019-12-18 07:37] LABS: ALANINE AMINOTRANSFERASE 78 U/L (12-78); ALBUMIN 2.9 G/DL (3.4-5.0); ALBUMIN/GLOBULIN RATIO 0.7 (1.1-1.5); ALKALINE PHOSPHATASE 67 IU/L (46-116); ANION GAP 13 (8-16); ASPARTATE AMINO TRANSFERASE 60 U/L (10-37); BILIRUBIN,TOTAL 0.5 MG/DL (0.1-1.0); BLOOD UREA NITROGEN 12 MG/DL (7-18); BUN/CREATININE RATIO 14.6 (6.6-38.0); CHLORIDE 103 MMOL/L (99-107); CREATININE 0.82 MG/DL (0.40-0.90); GLUCOSE 117 MG/DL (70-104); MAGNESIUM 1.8 MG/DL (1.5-2.4); POTASSIUM 3.2 MMOL/L (3.5-5.1); SODIUM 136 MMOL/L (135-145); TOTAL CARBON DIOXIDE 20.2 MMOL/L (24-32); TOTAL PROTEIN 6.8 G/DL (6.4-8.2); eGFR 71 ML/MIN
[2019-12-18] MEDS: loratadine 10mg tablet PO SCH (08:00)
[2019-12-18] MEDS: K and/or MAG REPLACEMENT MC SCH ×4 (08:00→20:00)
[2019-12-18] MEDS: tetrahydrozoline 0.05% 15ml ophthalmic drops EACHEYE SCH (08:31)
--- NOTE | 2019-12-18 08:34 | NUR ---
PAGER ID: [phone] MESSAGE: DARRICK CHIN. NICK [place]OT[employer]. [facility] [id number]
[2019-12-18] MEDS ORDERED: magnesium Cl slow-release 64mg tablet PO PRN (09:55)
[2019-12-18] MEDS ORDERED: potassium Cl 20 mEq SR tablet PO PRN (09:55)
[2019-12-18] MEDS ORDERED: magnesium 4gm in 100ml NS 100 ML IV PRN (09:55)
[2019-12-18] MEDS ORDERED: potassium CL 10mEq/100ml bag 100 ML IV PRN (09:55)
[2019-12-18 11:57] VITALS: BP 155/87
[2019-12-18] MEDS: potassium Cl 20 mEq SR tablet PO PRN ×3 (12:11→20:32)
[2019-12-18 13:46] LABS: PARTIAL THROMBOPLASTIN TIME 30 SECONDS (22-32)
[2019-12-18 18:00] VITALS: BP 164/93
--- NOTE | 2019-12-18 18:08 | NUR ---
Problems reprioritized. Patient report given, questions answered & plan of care reviewed with IVANA DE LA CRUZ.
--- NOTE | 2019-12-18 18:12 | NUR ---
Patient in room ORTHO 4020. I have received report from Petty DE LA CRUZ and had the opportunity to ask questions and assume patient care.
[2019-12-18] MEDS: topiramate 25mg tablet PO SCH (20:33)
[2019-12-18] MEDS: mirtazapine 15mg tablet PO SCH (20:33)
[2019-12-18 22:00] VITALS: BP 170/94
[2019-12-19 02:07] VITALS: BP 170/101
[2019-12-19] MEDS: baclofen 10mg tablet PO PRN ×3 (02:09→21:00)
[2019-12-19] MEDS: oxyCODONE/APAP 5-325mg tablet PO PRN ×2 (05:05→17:17)
[2019-12-19 05:49] LABS: BASOPHILS # (AUTO) 0.1 X10'3 (0-0.2); BASOPHILS % (AUTO) 0.7 % (0-1); EOSINOPHILS % (AUTO) 0.6 % (0-6); HEMATOCRIT 37.3 % (35.0-45.0); HEMOGLOBIN 12.7 g/dl (12.0-16.0); LYMPHOCYTES # (AUTO) 0.7 X10'3 (1.1-4.8); MEAN CORPUSCULAR HEMOGLOBIN 30.4 PG (27.0-31.0); MEAN CORPUSCULAR HGB CONC 34.1 g/dL (33.0-36.5); MEAN CORPUSCULAR VOLUME 89.2 FL (78-98); MEAN PLATELET VOLUME 7.6 FL (7.4-10.4); MONOCYTES # (AUTO) 0.6 X10'3 (0-0.9); MONOCYTES % (AUTO) 7.9 % (2-12); NEUTROPHILS # (AUTO) 6.1 X10'3 (1.8-7.7); NEUTROPHILS % (AUTO) 81.8 % (42-75); PLATELET COUNT 319 X10'3 (140-440); RED BLOOD COUNT 4.19 X10'6 (4.20-5.60); RED CELL DISTRIBUTION WIDTH 13.1 % (11.5-14.5); WHITE BLOOD COUNT 7.5 X10'3 (4.5-11.0)
[2019-12-19 06:00] VITALS: BP 174/100
[2019-12-19 06:11] LABS: ALANINE AMINOTRANSFERASE 106 U/L (12-78); ALBUMIN 2.9 G/DL (3.4-5.0); ALBUMIN/GLOBULIN RATIO 0.7 (1.1-1.5); ALKALINE PHOSPHATASE 70 IU/L (46-116); ANION GAP 13 (8-16); ASPARTATE AMINO TRANSFERASE 63 U/L (10-37); BILIRUBIN,TOTAL 0.4 MG/DL (0.1-1.0); BLOOD UREA NITROGEN 13 MG/DL (7-18); BUN/CREATININE RATIO 14.8 (6.6-38.0); CALCIUM 9.1 MG/DL (8.5-10.1); CHLORIDE 103 MMOL/L (99-107); CREATININE 0.88 MG/DL (0.40-0.90); GLUCOSE 113 MG/DL (70-104); MAGNESIUM 1.8 MG/DL (1.5-2.4); POTASSIUM 3.5 MMOL/L (3.5-5.1); SODIUM 137 MMOL/L (135-145); TOTAL CARBON DIOXIDE 21.3 MMOL/L (24-32); TOTAL PROTEIN 7.1 G/DL (6.4-8.2); eGFR 65 ML/MIN
--- NOTE | 2019-12-19 06:27 | NUR ---
received report from ana paula balderrama
--- NOTE | 2019-12-19 06:43 | NUR ---
Problems reprioritized. Patient report given, questions answered & plan of care reviewed with Padmini DE LA CRUZ.
[2019-12-19] MEDS: K and/or MAG REPLACEMENT MC SCH ×2 (08:00)
[2019-12-19] MEDS: paliperidone 1.5mg ER tablet PO SCH (08:00)
[2019-12-19] MEDS: loratadine 10mg tablet PO SCH (08:00)
[2019-12-19] MEDS: morphine ER 30mg tablet PO SCH ×2 (08:11→17:59)
[2019-12-19] MEDS: lactobacillus rhamnosus 10,000 MMU CELLS/CAPSULE PO SCH ×2 (08:11→20:53)
[2019-12-19] MEDS: docusate sod 100mg capsule PO SCH ×2 (08:12→20:52)
[2019-12-19] MEDS: pantoprazole 40mg Tablet.DR PO SCH (08:12)
[2019-12-19] MEDS: vitamin D (cholecalciferol) 1,000 unit tablet PO SCH (08:13)
[2019-12-19] MEDS: busPIRone 15mg tablet PO SCH ×3 (08:13→20:53)
[2019-12-19] MEDS: sucralfate 1 gm tablet PO SCH ×4 (08:13→20:53)
[2019-12-19] MEDS: aspirin 81mg tab.chew PO SCH (08:13)
[2019-12-19] MEDS: FLUoxetine 20mg capsule PO SCH (08:14)
[2019-12-19] MEDS: ziprasidone 20mg capsule PO SCH ×2 (08:16→20:53)
[2019-12-19] MEDS: amLODIPine 5mg tablet PO SCH (08:16)
[2019-12-19] MEDS: gabapentin 100mg capsule PO SCH ×2 (08:16→20:54)
[2019-12-19] MEDS: heparin, porcine 5000 units/ml vial SQ SCH ×3 (08:18→16:00)
[2019-12-19] MEDS: tetrahydrozoline 0.05% 15ml ophthalmic drops EACHEYE SCH (08:20)
[2019-12-19] MEDS: CefTRIAXone/D5W-Rocephin 1gm 50 ML IV SCH (08:28)
[2019-12-19] MEDS: normal saline 1000ml 1,000 ML IV SCH (09:58)
[2019-12-19 10:00] VITALS: BP 170/93
[2019-12-19] MEDS ORDERED: amLODIPine 5mg tablet PO ONE (11:25)
[2019-12-19] MEDS: carVEDilol 3.125mg tablet PO SCH ×2 (11:34→20:53)
[2019-12-19] MEDS: polyethylene glycol 3350 17gm powd pack PO SCH (11:35)
--- NOTE | 2019-12-19 12:55 | NUR ---
Initial: Pt admit w/ metabolic encephalopathy likely secondary to UTI/polypharmacy per MD. Hx dementia, dystonia, Parkinson's, and schizophrenia per EMR. PO 0-25% avg meals past 3 days not meeting needs w/ ALOC. Advanced to mechanical soft/grind all/thin per PLATE FITTER. MIKALA d/w RN who reports unsure if needs adaptive wear at this time; will trial adaptive wear and PO tolerance given hx and monitor for PO trends. Likely to fluctuate w/ ALOC. LBM 12/16. Gluteal blisters possibly shingles otherwise skin intact per WOC. Will continue to monitor. Rec: 1. continue mechanical soft/grind all/thin diet per PLATE FITTER/MD 2. adaptive wear trial given dystonia and Parkinson's hx; consider feeder if poor PO persists 3. monitor for ONS needs 4. routine bowel care 5. weekly scaled wts Addendum: 12/19/19 at [address] Amended: Links added.
[2019-12-19 18:00] VITALS: BP 180/100
--- NOTE | 2019-12-19 18:30 | NUR ---
Patient in room ORTHO 4020. I have received report from Padmini DE LA CRUZ and had the opportunity to ask questions and assume patient care.
--- NOTE | 2019-12-19 18:40 | NUR ---
gave report to ana paula balderrama
[2019-12-19] MEDS: mirtazapine 15mg tablet PO SCH (20:54)
[2019-12-19] MEDS: topiramate 25mg tablet PO SCH (20:54)
[2019-12-19 22:00] VITALS: BP 150/101
[2019-12-20] MEDS: normal saline 1000ml 1,000 ML IV SCH ×2 (05:58→08:32)
[2019-12-20 06:00] VITALS: BP 154/88
[2019-12-20 06:10] LABS: BASOPHILS % (AUTO) 0.3 % (0-1); EOSINOPHILS # (AUTO) 0.1 X10'3 (0-0.9); EOSINOPHILS % (AUTO) 1.1 % (0-6); HEMATOCRIT 36.2 % (35.0-45.0); HEMOGLOBIN 12.2 g/dl (12.0-16.0); LYMPHOCYTES # (AUTO) 0.7 X10'3 (1.1-4.8); LYMPHOCYTES % (AUTO) 9.6 % (21-51); MEAN CORPUSCULAR HGB CONC 33.8 g/dL (33.0-36.5); MEAN CORPUSCULAR VOLUME 88.7 FL (78-98); MEAN PLATELET VOLUME 7.2 FL (7.4-10.4); MONOCYTES # (AUTO) 0.6 X10'3 (0-0.9); MONOCYTES % (AUTO) 8.1 % (2-12); NEUTROPHILS # (AUTO) 5.5 X10'3 (1.8-7.7); NEUTROPHILS % (AUTO) 80.9 % (42-75); PLATELET COUNT 314 X10'3 (140-440); RED BLOOD COUNT 4.08 X10'6 (4.20-5.60); RED CELL DISTRIBUTION WIDTH 13.4 % (11.5-14.5); WHITE BLOOD COUNT 6.9 X10'3 (4.5-11.0)
[2019-12-20 06:33] LABS: ALANINE AMINOTRANSFERASE 101 U/L (12-78); ALBUMIN 2.9 G/DL (3.4-5.0); ALBUMIN/GLOBULIN RATIO 0.7 (1.1-1.5); ALKALINE PHOSPHATASE 70 IU/L (46-116); ANION GAP 12 (8-16); ASPARTATE AMINO TRANSFERASE 51 U/L (10-37); BILIRUBIN,TOTAL 0.5 MG/DL (0.1-1.0); BLOOD UREA NITROGEN 12 MG/DL (7-18); BUN/CREATININE RATIO 12.1 (6.6-38.0); CHLORIDE 100 MMOL/L (99-107); CREATININE 0.99 MG/DL (0.40-0.90); GLUCOSE 134 MG/DL (70-104); MAGNESIUM 1.6 MG/DL (1.5-2.4); POTASSIUM 3.1 MMOL/L (3.5-5.1); SODIUM 133 MMOL/L (135-145); TOTAL CARBON DIOXIDE 20.8 MMOL/L (24-32); TOTAL PROTEIN 6.8 G/DL (6.4-8.2); eGFR 57 ML/MIN
--- NOTE | 2019-12-20 06:40 | NUR ---
Problems reprioritized. Patient report given, questions answered & plan of care reviewed with Jocelyn DE LA CRUZ.
--- NOTE | 2019-12-20 07:15 | NUR ---
Patient in room ORTHO 4020. I have received report from ana paula del rosario and had the opportunity to ask questions and assume patient care.
[2019-12-20] MEDS: polyethylene glycol 3350 17gm powd pack PO SCH (08:00)
[2019-12-20] MEDS: loratadine 10mg tablet PO SCH (08:00)
[2019-12-20] MEDS ORDERED: amLODIPine 5mg tablet PO SCH (08:00)
[2019-12-20] MEDS: paliperidone 1.5mg ER tablet PO SCH (08:00)
[2019-12-20] MEDS: pantoprazole 40mg Tablet.DR PO SCH (08:16)
[2019-12-20] MEDS: gabapentin 100mg capsule PO SCH (08:17)
[2019-12-20] MEDS: ziprasidone 20mg capsule PO SCH (08:17)
[2019-12-20] MEDS: FLUoxetine 20mg capsule PO SCH (08:17)
[2019-12-20] MEDS: lactobacillus rhamnosus 10,000 MMU CELLS/CAPSULE PO SCH (08:17)
[2019-12-20] MEDS: morphine ER 30mg tablet PO SCH (08:18)
[2019-12-20] MEDS: busPIRone 15mg tablet PO SCH ×2 (08:18→12:42)
[2019-12-20] MEDS: carVEDilol 3.125mg tablet PO SCH (08:19)
[2019-12-20] MEDS: docusate sod 100mg capsule PO SCH (08:20)
[2019-12-20] MEDS: vitamin D (cholecalciferol) 1,000 unit tablet PO SCH (08:21)
[2019-12-20] MEDS: aspirin 81mg tab.chew PO SCH (08:21)
[2019-12-20] MEDS: tetrahydrozoline 0.05% 15ml ophthalmic drops EACHEYE SCH (08:23)
[2019-12-20] MEDS: sucralfate 1 gm tablet PO SCH ×2 (08:28→12:41)
[2019-12-20] MEDS: heparin, porcine 5000 units/ml vial SQ SCH ×2 (08:29→08:36)
[2019-12-20] MEDS: CefTRIAXone/D5W-Rocephin 1gm 50 ML IV SCH (08:33)
[2019-12-20 10:00] VITALS: BP 150/91
[2019-12-20] MEDS: oxyCODONE/APAP 5-325mg tablet PO PRN (11:41)
--- NOTE | 2019-12-20 15:30 | NUR ---
Pt transferred via [facility] to [facility] with all belonging,report called to LVN. Graciela Gooden dc'd from [facility],site clear pericare and brief applied prior to transport,transferred via w/c
== END 2019-12-20 15:44 | DRG 689 ==
LOC: ER 02:41 → UNDOADMIN 05:58 → ED HOLD 05:58 → ORTHO 4S 13:30
PROVIDERS: ADMIT Family Medicine; ATTEND Family Medicine
PROC: 4A00X4Z Measurement of Central Nervous Electrical Activity, External Approach (ICD-10-PCS; principal; 2019-12-15)
DX: N39.0 Urinary tract infection, site not specified (principal); G93.41 Metabolic encephalopathy; E87.1 Hypo-osmolality and hyponatremia; N17.9 Acute kidney failure, unspecified; G24.8 Other dystonia; J44.9 Chronic obstructive pulmonary disease, unspecified; I10 Essential (primary) hypertension; F02.80 Dementia in other diseases classified elsewhere, unspecified severity, without behavioral disturbance, psychotic disturbance, mood disturbance, and anxiety; F17.210 Nicotine dependence, cigarettes, uncomplicated; G20 Parkinson's disease; E87.6 Hypokalemia; F32.9 Major depressive disorder, single episode, unspecified; F41.9 Anxiety disorder, unspecified; G43.909 Migraine, unspecified, not intractable, without status migrainosus; K21.9 Gastro-esophageal reflux disease without esophagitis; G89.29 Other chronic pain; M54.9 Dorsalgia, unspecified; F20.9 Schizophrenia, unspecified; T50.905A Adverse effect of unspecified drugs, medicaments and biological substances, initial encounter; Z90.710 Acquired absence of both cervix and uterus; Z85.41 Personal history of malignant neoplasm of cervix uteri; Z88.0 Allergy status to penicillin; Z88.1 Allergy status to other antibiotic agents; Z88.5 Allergy status to narcotic agent; Y92.89 Other specified places as the place of occurrence of the external cause
CPT/HCPCS: 36415; 70450; 70544; 70551; 71045; 80053; 80061; 80305; 80320; 81001; 82140; 83605; 83735; 84145; 84443; 84484; 85025; 85610; 85730; 87040; 87077; 87081; 87088; 92508; 92616; 93306; 93880; 93971; 94760; 95816; 96360; 97110; 97116; 97163; 97530; 97535; 99285; G0378; J0696; J1644; J2060; J3480; J7030

== ENCOUNTER 2020-02-03 09:35 | Emergency (ER) | payer MEDICARE, MEDICAID ==
[~2020-02-03] VITALS: Ht 165.1 cm; Wt 84.1 kg
[~2020-02-03 09:35] MED LIST changes: -AMOX-441 PO; +BISA5TAB RC; +BUS15T PO; +CHOL10006 PO; +DOCU100C42 PO; +FLUT16SP2 BOTHNARES; -FURO-150 PO; +FURO40TA4 PO; +GABA-530 PO; +HYDR-3686 PO; +LORA10TA7 PO; -MELO-102 PO; +MIRT15TA PO; -MIRT30TA3 PO; +OLOP5DRO14 EACHEYE; +OMEP-50 PO; -OMEP40CA13 PO; +OXYC-150 PO; -OXYC10TA47 PO; +PALI1.5T PO; +POTA8CAP20 PO; +SENN-263 PO; +SUCR1TAB PO; +TOPI25TA15 PO; -TOPI50TA24 PO
--- NOTE | 2020-02-03 10:01 | NUR ---
Patient refused to get into gown and stated, "She will not be admitted".
[2020-02-03 10:38] LABS: BASOPHILS # (AUTO) 0.1 X10'3 (0-0.2); BASOPHILS % (AUTO) 0.7 % (0-1); EOSINOPHILS % (AUTO) 0.5 % (0-6); HEMATOCRIT 42.1 % (35.0-45.0); HEMOGLOBIN 13.8 g/dl (12.0-16.0); LYMPHOCYTES # (AUTO) 1.2 X10'3 (1.1-4.8); LYMPHOCYTES % (AUTO) 15.1 % (21-51); MEAN CORPUSCULAR HEMOGLOBIN 28.9 PG (27.0-31.0); MEAN CORPUSCULAR HGB CONC 32.9 g/dL (33.0-36.5); MEAN CORPUSCULAR VOLUME 87.8 FL (78-98); MEAN PLATELET VOLUME 7.2 FL (7.4-10.4); MONOCYTES # (AUTO) 0.3 X10'3 (0-0.9); MONOCYTES % (AUTO) 4.1 % (2-12); NEUTROPHILS # (AUTO) 6.2 X10'3 (1.8-7.7); NEUTROPHILS % (AUTO) 79.6 % (42-75); PLATELET COUNT 319 X10'3 (140-440); RED BLOOD COUNT 4.79 X10'6 (4.20-5.60); RED CELL DISTRIBUTION WIDTH 14.1 % (11.5-14.5); WHITE BLOOD COUNT 7.8 X10'3 (4.5-11.0)
[2020-02-03 10:58] LABS: ALANINE AMINOTRANSFERASE 25 U/L (12-78); ALBUMIN 3.7 G/DL (3.4-5.0); ALBUMIN/GLOBULIN RATIO 0.9 (1.1-1.5); ALKALINE PHOSPHATASE 89 IU/L (46-116); ANION GAP 9 (8-16); ASPARTATE AMINO TRANSFERASE 18 U/L (10-37); BILIRUBIN,TOTAL 0.4 MG/DL (0.1-1.0); BLOOD UREA NITROGEN 11 MG/DL (7-18); BUN/CREATININE RATIO 13.4 (6.6-38.0); CALCIUM 9.4 MG/DL (8.5-10.1); CHLORIDE 101 MMOL/L (99-107); CREATININE 0.82 MG/DL (0.40-0.90); GLUCOSE 123 MG/DL (70-104); SODIUM 136 MMOL/L (135-145); TOTAL CARBON DIOXIDE 26.2 MMOL/L (24-32); TOTAL PROTEIN 7.9 G/DL (6.4-8.2); eGFR 71 ML/MIN
[2020-02-03] MEDS ORDERED: methylPREDNISolone sod succ 125mg/2ml vial IV ONE (11:15)
[2020-02-03] MEDS ORDERED: PRED20TA PO ×2 (12:12→12:16)
[2020-02-03 12:51] VITALS: BP 150/86
== END 2020-02-03 12:54 | disposition home or self-care (01) ==
LOC: ER 09:35
DX: J44.1 Chronic obstructive pulmonary disease with (acute) exacerbation (principal); F03.90 Unspecified dementia, unspecified severity, without behavioral disturbance, psychotic disturbance, mood disturbance, and anxiety; G43.909 Migraine, unspecified, not intractable, without status migrainosus; G20 Parkinson's disease; I10 Essential (primary) hypertension; J44.9 Chronic obstructive pulmonary disease, unspecified; K21.9 Gastro-esophageal reflux disease without esophagitis; G89.29 Other chronic pain; F41.9 Anxiety disorder, unspecified; F32.9 Major depressive disorder, single episode, unspecified; F20.9 Schizophrenia, unspecified; Z90.89 Acquired absence of other organs; Z90.710 Acquired absence of both cervix and uterus; Z87.891 Personal history of nicotine dependence; Z88.0 Allergy status to penicillin; Z88.5 Allergy status to narcotic agent; Z79.2 Long term (current) use of antibiotics; Z88.8 Allergy status to other drugs, medicaments and biological substances; Z79.899 Other long term (current) drug therapy
CPT/HCPCS: 36415; 71045; 80053; 83605; 83880; 85025; 87040; 87635; 96374; 99284; J2930

== ENCOUNTER 2020-12-12 09:48 | Emergency (ER) | payer MEDICARE, MEDICAID ==
[~2020-12-12] VITALS: Ht 165.1 cm; Wt 102.3 kg
[~2020-12-12 09:48] MED LIST changes: +MIRT-116 PO; -MIRT15TA PO; +PRED20TA PO
[2020-12-12 10:22] VITALS: BP 122/69
--- NOTE | 2020-12-12 15:15 | NUR ---
Patient not in lobby. Called patient at home, home line was busy. Called caregiver who stated that she was tired of waiting and wanted to go home. He also said patient was going to be coming back tomorrow morning. PA concerned regardig decrease oxygen saturation, but caregiver stated patient is supposed to be on Oxygen 24/. I stated to caregiver that I had a few ER beds opening up if patient wanted to come back, caregiver stated she would just come in tomorrow morning early with other caregiver. Jessica FISHER aware.
[2020-12-13] MEDS ORDERED: PRED10TA23 PO (12:05)
[2020-12-13] MEDS ORDERED: LEVO500T89 PO (12:05)
== END 2020-12-12 15:23 | disposition left against medical advice (07) ==
LOC: ER 09:49
DX: R09.3 Abnormal sputum (principal); Z53.21 Procedure and treatment not carried out due to patient leaving prior to being seen by health care provider

== ENCOUNTER → 2020-12-13 | Emergency (ER) | payer MEDICARE, MEDICAID ==
[~2020-12-13] VITALS: Ht 157.5 cm; Wt 102.3 kg
[~2020-12-13] MED LIST changes: +CefTRIAXone 2gm/D5W 50ml BAG 50 ML IV ONE; +LEVO500T89 PO; +ONDA4TAB6 PO; +PRED10TA23 PO; +azithromycin/NS 500mg/250ml 250 ML IV ONE; +iohexol 350MG/ML 100ml bottle IV ONE; +ipratropium/albuterol 3ml nebule NEB ONE; +methylPREDNISolone sod succ 125mg/2ml vial IV ONE; +normal saline 1000ML IV soln IVB ONE
[2020-12-13 09:36] LABS: BASOPHILS % (AUTO) 0.5 % (0-1); EOSINOPHILS # (AUTO) 0.1 X10'3 (0-0.9); EOSINOPHILS % (AUTO) 0.8 % (0-6); HEMATOCRIT 33.9 % (35.0-45.0); LYMPHOCYTES # (AUTO) 0.8 X10'3 (1.1-4.8); LYMPHOCYTES % (AUTO) 8.3 % (21-51); MEAN CORPUSCULAR HEMOGLOBIN 26.9 PG (27.0-31.0); MEAN CORPUSCULAR HGB CONC 32.5 g/dL (33.0-36.5); MEAN CORPUSCULAR VOLUME 82.9 FL (78-98); MEAN PLATELET VOLUME 7.8 FL (7.4-10.4); MONOCYTES # (AUTO) 0.5 X10'3 (0-0.9); MONOCYTES % (AUTO) 4.8 % (2-12); NEUTROPHILS # (AUTO) 8.1 X10'3 (1.8-7.7); NEUTROPHILS % (AUTO) 85.6 % (42-75); PLATELET COUNT 212 X10'3 (140-440); RED BLOOD COUNT 4.08 X10'6 (4.20-5.60); RED CELL DISTRIBUTION WIDTH 15.8 % (11.5-14.5); WHITE BLOOD COUNT 9.5 X10'3 (4.5-11.0)
[2020-12-13 09:37] LABS: CLARITY,URINE CLEAR (Clear); COLOR,URINE STRAW (Yellow); GLUCOSE, URINE NEGATIVE (Neg); KETONES,URINE NEGATIVE (Neg); LEUKOCYTE ESTERASE ,URINE TRACE (Neg); NITRITES, URINE NEGATIVE (Neg); OCCULT BLOOD,URINE NEGATIVE (Neg); PH,URINE 7.5 (4.8-8.0); PROTEIN,URINE NEGATIVE (Neg); UROBILINOGEN,URINE 0.2 E.U/dL (0.2-1.0)
[2020-12-13 09:38] LABS: UA COLLECTION TYPE NON-SPECIFIED
[2020-12-13 09:51] LABS: BACTERIA,URINE FEW /HPF (Neg); RBC,URINE 0-2 /HPF (0-2); SQUAMOUS EPITHELIAL CELL,UR FEW /LPF (FEW); WBC,URINE 0-4 /HPF (0-4)
[2020-12-13 09:52] LABS: ALANINE AMINOTRANSFERASE 16 U/L (12-78); ALBUMIN 2.8 G/DL (3.4-5.0); ALBUMIN/GLOBULIN RATIO 0.7 (1.1-1.5); ALKALINE PHOSPHATASE 97 IU/L (46-116); ANION GAP 7 (8-16); ASPARTATE AMINO TRANSFERASE 15 U/L (10-37); BILIRUBIN,TOTAL 0.3 MG/DL (0.1-1.0); BLOOD UREA NITROGEN 18 MG/DL (7-18); BUN/CREATININE RATIO 16.2 (6.6-38.0); CALCIUM 8.8 MG/DL (8.5-10.1); CHLORIDE 105 MMOL/L (99-107); CREATININE 1.11 MG/DL (0.40-0.90); GLUCOSE 133 MG/DL (70-104); POTASSIUM 3.9 MMOL/L (3.5-5.1); SODIUM 142 MMOL/L (135-145); TOTAL CARBON DIOXIDE 29.6 MMOL/L (24-32); TOTAL PROTEIN 7.1 G/DL (6.4-8.2); eGFR 50 ML/MIN
[2020-12-13 14:11] VITALS: BP 159/98
== END | disposition admitted as inpatient to this hospital (09) ==
LOC: ER 08:13
DX: J96.01 Acute respiratory failure with hypoxia (principal); I11.0 Hypertensive heart disease with heart failure; I50.9 Heart failure, unspecified; J18.9 Pneumonia, unspecified organism; R04.2 Hemoptysis; J44.1 Chronic obstructive pulmonary disease with (acute) exacerbation; G43.909 Migraine, unspecified, not intractable, without status migrainosus; G20 Parkinson's disease; F02.80 Dementia in other diseases classified elsewhere, unspecified severity, without behavioral disturbance, psychotic disturbance, mood disturbance, and anxiety; F20.9 Schizophrenia, unspecified; K21.9 Gastro-esophageal reflux disease without esophagitis; G89.29 Other chronic pain; Z86.718 Personal history of other venous thrombosis and embolism; Z85.89 Personal history of malignant neoplasm of other organs and systems; Z88.0 Allergy status to penicillin; Z88.1 Allergy status to other antibiotic agents; Z88.6 Allergy status to analgesic agent; Z88.5 Allergy status to narcotic agent; Z88.8 Allergy status to other drugs, medicaments and biological substances; Z79.899 Other long term (current) drug therapy; Z60.2 Problems related to living alone
CPT/HCPCS: 36415; 71045; 71275; 80053; 81001; 83880; 84145; 84484; 85025; 85610; 86885; 86900; 86901; 87088; 94640; 94799; 96361; 96365; 96375; 99291; J0456; J0696; J2930; J7030; Q9967; 27840; 94760

== ENCOUNTER 2020-12-14 04:47 | Emergency (ER) | payer MEDICARE, MEDICAID ==
[~2020-12-14] VITALS: Ht 157.5 cm; Wt 84.1 kg
[~2020-12-14 04:47] MED LIST changes: -CefTRIAXone 2gm/D5W 50ml BAG 50 ML IV ONE; -ONDA4TAB6 PO; -azithromycin/NS 500mg/250ml 250 ML IV ONE; -iohexol 350MG/ML 100ml bottle IV ONE; -ipratropium/albuterol 3ml nebule NEB ONE; -methylPREDNISolone sod succ 125mg/2ml vial IV ONE; -normal saline 1000ML IV soln IVB ONE
[2020-12-14 05:05] VITALS: BP 147/77
[2020-12-14 06:07] LABS: BASOPHILS % (AUTO) 0.4 % (0-1); EOSINOPHILS % (AUTO) 0 % (0-6); HEMATOCRIT 34.6 % (35.0-45.0); HEMOGLOBIN 11.3 g/dl (12.0-16.0); LYMPHOCYTES % (AUTO) 10.9 % (21-51); MEAN CORPUSCULAR HGB CONC 32.7 g/dL (33.0-36.5); MEAN CORPUSCULAR VOLUME 82.8 FL (78-98); MONOCYTES # (AUTO) 0.6 X10'3 (0-0.9); MONOCYTES % (AUTO) 6.5 % (2-12); NEUTROPHILS # (AUTO) 7.3 X10'3 (1.8-7.7); NEUTROPHILS % (AUTO) 82.2 % (42-75); PLATELET COUNT 270 X10'3 (140-440); RED BLOOD COUNT 4.18 X10'6 (4.20-5.60); RED CELL DISTRIBUTION WIDTH 15.7 % (11.5-14.5); WHITE BLOOD COUNT 8.8 X10'3 (4.5-11.0)
[2020-12-14 06:25] LABS: CLARITY,URINE CLEAR (Clear); COLOR,URINE YELLOW (Yellow); GLUCOSE, URINE 250 mg/dl (Neg); KETONES,URINE NEGATIVE (Neg); LEUKOCYTE ESTERASE ,URINE NEGATIVE (Neg); NITRITES, URINE NEGATIVE (Neg); OCCULT BLOOD,URINE SMALL (Neg); PH,URINE 7.5 (4.8-8.0); PROTEIN,URINE TRACE mg/dl (Neg); UROBILINOGEN,URINE 0.2 E.U/dL (0.2-1.0)
[2020-12-14 06:26] LABS: UA COLLECTION TYPE CLN CATCH MIDSTREAM
[2020-12-14 06:28] LABS: ALANINE AMINOTRANSFERASE 19 U/L (12-78); ALBUMIN 2.8 G/DL (3.4-5.0); ALBUMIN/GLOBULIN RATIO 0.6 (1.1-1.5); ALKALINE PHOSPHATASE 104 IU/L (46-116); ANION GAP 9 (8-16); ASPARTATE AMINO TRANSFERASE 14 U/L (10-37); BILIRUBIN,TOTAL 0.2 MG/DL (0.1-1.0); BLOOD UREA NITROGEN 17 MG/DL (7-18); BUN/CREATININE RATIO 17.2 (6.6-38.0); CALCIUM 9.2 MG/DL (8.5-10.1); CHLORIDE 106 MMOL/L (99-107); CREATININE 0.99 MG/DL (0.40-0.90); GLUCOSE 134 MG/DL (70-104); POTASSIUM 4.2 MMOL/L (3.5-5.1); SODIUM 140 MMOL/L (135-145); TOTAL CARBON DIOXIDE 24.7 MMOL/L (24-32); TOTAL PROTEIN 7.4 G/DL (6.4-8.2); eGFR 57 ML/MIN
[2020-12-14 06:33] LABS: BACTERIA,URINE FEW /HPF (Neg); MUCUS STRANDS NONE SEEN /LPF (Neg); RBC,URINE 20-50 /HPF (0-2); RENAL CELLS, URINE FEW /HPF; SQUAMOUS EPITHELIAL CELL,UR FEW /LPF (FEW); WBC,URINE 0-4 /HPF (0-4); YEAST FEW /HPF (NEGATIVE)
[2020-12-14] MEDS ORDERED: ONDA4TAB6 PO (07:05)
== END 2020-12-14 08:12 | disposition home or self-care (01) ==
LOC: ER 04:47
DX: J44.1 Chronic obstructive pulmonary disease with (acute) exacerbation (principal); J96.01 Acute respiratory failure with hypoxia; J18.9 Pneumonia, unspecified organism; R04.2 Hemoptysis; I10 Essential (primary) hypertension; K21.9 Gastro-esophageal reflux disease without esophagitis; G89.29 Other chronic pain; F41.9 Anxiety disorder, unspecified; F32.9 Major depressive disorder, single episode, unspecified; F20.9 Schizophrenia, unspecified; Z86.718 Personal history of other venous thrombosis and embolism; Z85.41 Personal history of malignant neoplasm of cervix uteri; Z90.710 Acquired absence of both cervix and uterus; Z90.89 Acquired absence of other organs; Z60.2 Problems related to living alone; Z88.5 Allergy status to narcotic agent; Z88.8 Allergy status to other drugs, medicaments and biological substances; Z88.1 Allergy status to other antibiotic agents; Z88.0 Allergy status to penicillin; Z79.2 Long term (current) use of antibiotics; Z79.899 Other long term (current) drug therapy
CPT/HCPCS: 36415; 71045; 80053; 81001; 84145; 84484; 85025; 87040; 93005; 99285

== ENCOUNTER 2021-01-07 05:54 | Emergency (ER) | payer MEDICARE, MEDICAID ==
[~2021-01-07] VITALS: Ht 162.6 cm; Wt 100.0 kg
[~2021-01-07 05:54] MED LIST changes: -LEVO500T89 PO; +ONDA4TAB6 PO
[2021-01-07] MEDS ORDERED: ipratropium/albuterol 3ml nebule NEB ONE (06:55)
[2021-01-07] MEDS ORDERED: benzonatate 100mg capsule PO ONE (06:55)
[2021-01-07] MEDS ORDERED: LORazepam 0.5 MG tablet PO ONE (07:30)
[2021-01-07] MEDS ORDERED: LORazepam 1 MG tablet PO ONE (07:30)
[2021-01-07 07:36] LABS: BASOPHILS % (AUTO) 0.3 % (0-1); EOSINOPHILS # (AUTO) 0.1 X10'3 (0-0.9); EOSINOPHILS % (AUTO) 0.6 % (0-6); HEMATOCRIT 39.6 % (35.0-45.0); HEMOGLOBIN 12.7 g/dl (12.0-16.0); LYMPHOCYTES # (AUTO) 1.1 X10'3 (1.1-4.8); MEAN CORPUSCULAR HEMOGLOBIN 26.7 PG (27.0-31.0); MEAN CORPUSCULAR VOLUME 83.4 FL (78-98); MEAN PLATELET VOLUME 7.4 FL (7.4-10.4); MONOCYTES # (AUTO) 0.4 X10'3 (0-0.9); MONOCYTES % (AUTO) 3.7 % (2-12); NEUTROPHILS # (AUTO) 10.2 X10'3 (1.8-7.7); NEUTROPHILS % (AUTO) 86.4 % (42-75); PLATELET COUNT 253 X10'3 (140-440); RED BLOOD COUNT 4.75 X10'6 (4.20-5.60); WHITE BLOOD COUNT 11.8 X10'3 (4.5-11.0)
[2021-01-07 07:55] LABS: ALANINE AMINOTRANSFERASE 21 U/L (12-78); ALBUMIN 3.6 G/DL (3.4-5.0); ALBUMIN/GLOBULIN RATIO 0.9 (1.1-1.5); ALKALINE PHOSPHATASE 119 IU/L (46-116); ANION GAP 11 (8-16); ASPARTATE AMINO TRANSFERASE 16 U/L (10-37); BILIRUBIN,TOTAL 0.3 MG/DL (0.1-1.0); BLOOD UREA NITROGEN 23 MG/DL (7-18); BUN/CREATININE RATIO 21.9 (6.6-38.0); CALCIUM 8.8 MG/DL (8.5-10.1); CHLORIDE 102 MMOL/L (99-107); CREATININE 1.05 MG/DL (0.40-0.90); GLUCOSE 130 MG/DL (70-104); POTASSIUM 4.2 MMOL/L (3.5-5.1); SODIUM 141 MMOL/L (135-145); TOTAL CARBON DIOXIDE 28.1 MMOL/L (24-32); TOTAL PROTEIN 7.4 G/DL (6.4-8.2); eGFR 53 ML/MIN
[2021-01-07 08:39] VITALS: BP 132/77
[2021-01-07] MEDS ORDERED: BENZ-16 PO (08:56)
== END 2021-01-07 10:08 | disposition home or self-care (01) ==
LOC: ER 05:55
DX: J43.9 Emphysema, unspecified (principal); J18.9 Pneumonia, unspecified organism; F03.91 Unspecified dementia, unspecified severity, with behavioral disturbance; G43.909 Migraine, unspecified, not intractable, without status migrainosus; G20 Parkinson's disease; I11.0 Hypertensive heart disease with heart failure; I50.9 Heart failure, unspecified; K21.9 Gastro-esophageal reflux disease without esophagitis; G89.29 Other chronic pain; Z87.410 Personal history of cervical dysplasia; Z99.81 Dependence on supplemental oxygen; Z87.891 Personal history of nicotine dependence; Z79.899 Other long term (current) drug therapy; Z88.1 Allergy status to other antibiotic agents; Z88.5 Allergy status to narcotic agent; Z88.0 Allergy status to penicillin; Z88.8 Allergy status to other drugs, medicaments and biological substances
CPT/HCPCS: 36415; 71045; 80053; 83880; 84484; 85025; 93005; 94640; 94760; 99284; 99285

== ENCOUNTER 2023-06-04 10:08 | Day surgery (SDC) | payer MEDICARE, MEDICAID ==
[~2023-06-04] VITALS: Ht 162.6 cm; Wt 91.0 kg
[~2023-06-04 10:08] MED LIST changes: -MIRT-116 PO; +MIRT-142 PO; -OLOP5DRO14 EACHEYE; +OLOP5DRO26 EACHEYE; -OMEP-50 PO; +OMEP20CA16 PO; -PRED10TA23 PO
[2023-06-04 11:15] VITALS: BP 165/108; PULSE 85; RESP 28
[2023-06-04] MEDS ORDERED: TRIH2TAB3 PO (12:00)
[2023-06-04] MEDS ORDERED: TIZA4TAB11 PO (12:00)
[2023-06-04] MEDS ORDERED: LIRA3PEN SUBCUT (12:00)
[2023-06-04] MEDS ORDERED: LORA-268 (12:00)
[2023-06-04] MEDS ORDERED: APIX5TAB3 PO (12:00)
[2023-06-04] MEDS ORDERED: BREX0.25 (12:00)
[2023-06-04] MEDS ORDERED: POLY119P2 PO (12:00)
[2023-06-04] MEDS ORDERED: OMEG-167 PO (12:00)
[2023-06-04] MEDS ORDERED: ARFO15VI NEB (12:00)
[2023-06-04] MEDS ORDERED: VITE1000C PO (12:00)
[2023-06-04] MEDS ORDERED: CARV3.123 PO (12:00)
[2023-06-04] MEDS ORDERED: OSC500T PO (12:00)
[2023-06-04] MEDS ORDERED: SUMA25TA35 PO (12:00)
[2023-06-04] MEDS ORDERED: TRAZ-251 PO (12:00)
[2023-06-04] MEDS ORDERED: MULT-1249 PO (12:00)
[2023-06-04] MEDS ORDERED: TRIA0.2585 (12:00)
[2023-06-04] MEDS ORDERED: ALBU18HF2 (12:00)
[2023-06-04] MEDS ORDERED: MELA5TAB12 PO (12:00)
[2023-06-04] MEDS ORDERED: MODA100T31 PO (12:00)
[2023-06-04] MEDS ORDERED: ONDA8TAB13 (12:01)
[2023-06-04] MEDS ORDERED: fentaNYL/PF 50MCG/1 ML 2ML syringe ONE (12:48)
[2023-06-04] MEDS ORDERED: MIDAZolam 1 MG/ML 5ML VIAL ONE (12:48)
[2023-06-04] MEDS ORDERED: diphenhydrAMINE 50 mg/ml inj ONE (12:48)
[2023-06-04 13:33] VITALS: BP 127/83; PULSE 81; RESP 23; O2SAT 100
[2023-06-04 13:41] VITALS: BP 125/125; PULSE 77; RESP 24; O2SAT 94
[2023-06-04 13:51] VITALS: BP 126/73; PULSE 83; RESP 20; O2SAT 94
[2023-06-04 13:56] VITALS: BP 128/89; PULSE 84; RESP 22; O2SAT 92
== END 2023-06-04 14:20 | disposition home or self-care (01) ==
LOC: GI LAB 10:08
PROVIDERS: ATTEND Internal Medicine Gastroenterology
DX: R19.5 Other fecal abnormalities (principal); K62.89 Other specified diseases of anus and rectum; G20.A1 Parkinson's disease without dyskinesia, without mention of fluctuations; F02.80 Dementia in other diseases classified elsewhere, unspecified severity, without behavioral disturbance, psychotic disturbance, mood disturbance, and anxiety; F20.9 Schizophrenia, unspecified
CPT/HCPCS: 45378; J1200; J2250; J3010; J7030; Z7512; 45380; 88305; 99152; 99153; A4620

== ENCOUNTER 2024-06-07 07:10 | Emergency (ER) | payer MEDICARE, MEDICAID ==
[~2024-06-07] VITALS: Ht 158.8 cm; Wt 90.9 kg
[~2024-06-07 07:10] MED LIST changes: +ALBU18HF2; +APIX5TAB3 PO; +ARFO15VI NEB; -BISA5TAB RC; +BREX0.25; -BUDE0.5A11 NEB; +CARV3.123 PO; -HYDR-3686 PO; +LIRA3PEN SUBCUT; +LORA-268; +MELA5TAB12 PO; +MODA100T31 PO; +MULT-1249 PO; -OLOP5DRO26 EACHEYE; +OMEG-167 PO; +ONDA-245; -ONDA4TAB6 PO; +OSC500T PO; -PALI1.5T PO; +POLY119P2 PO; -PRED20TA PO; -SENN-263 PO; +SENN-360 PO; +SUMA25TA35 PO; +TIZA4TAB11 PO; +TRAZ-251 PO; +TRIA0.2585; +TRIH2TAB3 PO; +VITE1000C PO
[2024-06-07] MEDS: methylPREDNISolone sod succ 125mg/2ml vial IV ONE (07:44)
[2024-06-07 07:45] LABS: BASOPHILS % (AUTO) 0.2 % (0-1); EOSINOPHILS # (AUTO) 0.1 X10'3 (0-0.9); EOSINOPHILS % (AUTO) 0.7 % (0-6); HEMATOCRIT 39.4 % (35.0-45.0); HEMOGLOBIN 13.1 g/dl (12.0-16.0); LYMPHOCYTES # (AUTO) 1.2 X10'3 (1.1-4.8); LYMPHOCYTES % (AUTO) 8.6 % (21-51); MEAN CORPUSCULAR HEMOGLOBIN 29.6 PG (27.0-31.0); MEAN CORPUSCULAR HGB CONC 33.3 g/dL (33.0-36.5); MEAN CORPUSCULAR VOLUME 88.8 FL (78-98); MEAN PLATELET VOLUME 7.6 FL (7.4-10.4); MONOCYTES # (AUTO) 0.8 X10'3 (0-0.9); MONOCYTES % (AUTO) 5.5 % (2-12); NEUTROPHILS # (AUTO) 11.8 X10'3 (1.8-7.7); PLATELET COUNT 184 X10'3 (140-440); RED BLOOD COUNT 4.44 X10'6 (4.20-5.60); RED CELL DISTRIBUTION WIDTH 13.5 % (11.5-14.5); WHITE BLOOD COUNT 13.8 X10'3 (4.5-11.0)
[2024-06-07] MEDS: LORazepam 2 mg/ml vial IV ONE (07:55)
[2024-06-07 07:57] VITALS: PULSE 156; RESP 16; O2SAT 95
[2024-06-07 08:09] VITALS: TEMP 98.3
[2024-06-07 08:11] VITALS: PULSE 89; PULSE 93; RESP 16; RESP 17; O2SAT 92; O2SAT 93; O2SAT 95
[2024-06-07] MEDS: albuterol 2.5 MG/3 ML nebule CONTNEB PRN (08:11)
[2024-06-07] MEDS: normal saline 500ml IV soln 500 ML IV ONE (08:16)
[2024-06-07 08:19] LABS: ALANINE AMINOTRANSFERASE 20 U/L (12-78); ALBUMIN 2.9 G/DL (3.4-5.0); ALBUMIN/GLOBULIN RATIO 0.7 (1.1-1.5); ALKALINE PHOSPHATASE 77 IU/L (46-116); ANION GAP 7 (8-16); ASPARTATE AMINO TRANSFERASE 27 U/L (10-37); BILIRUBIN,TOTAL 0.7 MG/DL (0.1-1.0); BLOOD UREA NITROGEN 20 MG/DL (7-18); BUN/CREATININE RATIO 16.3 (10.0-20.0); CALCIUM 9.1 MG/DL (8.5-10.1); CHLORIDE 100 MMOL/L (99-107); CREATININE 1.23 MG/DL (0.40-0.90); GLUCOSE 118 MG/DL (70-104); PRO BRAIN NATRIURETIC PEPTIDE 1604 PG/ML (0-125); SODIUM 133 MMOL/L (135-145); TOTAL CARBON DIOXIDE 26.1 MMOL/L (24-32); eCRCL 37 ML/MIN; eGFR 44 ML/MIN
[2024-06-07 08:28] LABS: POTASSIUM 4.2 MMOL/L (3.5-5.1)
[2024-06-07 08:33] LABS: ABG BASE EXCESS -1.3 mmol/L (-2.0-3.0); ABG HCO3 24.5 mmol/L (21.0-28.0); ABG OXYGEN SATURATION 98.4 % (94.0-98.0); ABG PCO2 (T) 45.1 mmHg (32.0-45.0); ABG PH (T) 7.353 (7.350-7.450); ABG PO2 (T) 103.3 mmHg (83.0-108.0); ALLEN'S TEST POSITIVE; FCOHb 1.8 % (0.5-1.5); FHHb 1.6 % (0.0-5.0); FMetHb 0.3 % (0.0-1.5); FO2Hb 96.3 % (94.0-98.0); MODE MASK - BIPAP; RESPIRATORY RATE 12 b/min; TIDAL VOLUME 546 mL; TOTAL HEMOGLOBIN 13.1 G/dl (12.0-16.0)
[2024-06-07 10:30] VITALS: RESP 15
[2024-06-07] MEDS: azithromycin 250mg tablet PO ONE (10:38)
[2024-06-07] MEDS: CefTRIAXone 2gm/D5W 50ml BAG 50 ML IV ONE (10:39)
[2024-06-07] MEDS: furosemide 10 MG/1 ML 10ml inj IV ONE (10:48)
[2024-06-07] MEDS ORDERED: ipratropium/albuterol 3ml nebule NEB SCH (11:00)
[2024-06-07] MEDS ORDERED: PRED20TA PO (11:25)
[2024-06-07] MEDS ORDERED: CEFD300C3 PO (11:26)
[2024-06-07] MEDS ORDERED: AZIT-164 PO (11:26)
[2024-06-07 12:45] VITALS: BP 100/65; PULSE 86; O2SAT 92
== END 2024-06-07 12:57 | disposition home or self-care (01) ==
LOC: ER 07:11
DX: J44.1 Chronic obstructive pulmonary disease with (acute) exacerbation (principal); I48.20 Chronic atrial fibrillation, unspecified; F20.9 Schizophrenia, unspecified; F03.90 Unspecified dementia, unspecified severity, without behavioral disturbance, psychotic disturbance, mood disturbance, and anxiety; G20.A1 Parkinson's disease without dyskinesia, without mention of fluctuations; I11.0 Hypertensive heart disease with heart failure; I50.9 Heart failure, unspecified; F41.9 Anxiety disorder, unspecified; F32.A Depression, unspecified; G43.909 Migraine, unspecified, not intractable, without status migrainosus; J96.90 Respiratory failure, unspecified, unspecified whether with hypoxia or hypercapnia; K21.9 Gastro-esophageal reflux disease without esophagitis; Z88.0 Allergy status to penicillin; Z88.5 Allergy status to narcotic agent; Z88.1 Allergy status to other antibiotic agents; Z88.8 Allergy status to other drugs, medicaments and biological substances; Z90.710 Acquired absence of both cervix and uterus; Z87.891 Personal history of nicotine dependence; Z20.822 Contact with and (suspected) exposure to COVID-19
CPT/HCPCS: 36415; 36600; 71045; 80053; 82803; 83880; 84484; 85018; 85025; 87502; 87503; 87811; 93005; 94640; 96365; 96375; 99291; A7015; J0696; J2060; J2919; J7040; Z7610; 94660; 94760; 99285

== ENCOUNTER 2024-08-05 09:10 | Outpatient (CLI) | payer MEDICARE, MEDICAID ==
[~2024-08-05 09:10] MED LIST changes: +barium sulfate 340gm for oral suspension 1 BOTTLE SUSP.RECON PO ONE
== END 2024-08-05 23:59 | disposition home or self-care (01) ==
LOC: RAD 09:10
PROVIDERS: ATTEND Surgery
DX: K44.9 Diaphragmatic hernia without obstruction or gangrene (principal); N32.3 Diverticulum of bladder; K21.9 Gastro-esophageal reflux disease without esophagitis
CPT/HCPCS: 74220